=== PATIENT | female | born 1965 | race Caucasian/White ===

== ENCOUNTER 2017-02-17 10:41 | Emergency (ER) | payer OTHER ==
[2017-02-17 10:42] VITALS: BMI 25.3
[2017-02-17 11:04] VITALS: TEMP 98.4; O2SAT 98
[2017-02-17] MEDS ORDERED: DiphenhydrAMINE 50 mg/ml Inj IM STA (11:17)
[2017-02-17] MEDS ORDERED: DiphenhydrAMINE 50 mg/ml Inj ONE (11:34)
[2017-02-17 12:51] VITALS: BP 118/65; PULSE 71; RESP 18
--- NOTE | 2017-02-17 12:52 | C.PDOC ---
History Of Present Illness 51 year old female presents to the ED for evaluation of an itchy rash which developed yesterday. Patient states the rash first began around her left wrist, then progressed to her left cheek, left eyebrow region and chin. Patient denies fever, chills, shortness of breath, difficulty swallowing, throat-swelling sensation, voice change, or contact with new foods, detergents, or soaps. Time Seen by Provider: 02/17/17 11:17 Chief Complaint (Nursing): Allergic Reaction History Per: Patient History/Exam Limitations: no limitations Onset/Duration Of Symptoms: Hrs Current Symptoms Are (Timing): Still Present Possible Cause: Unknown Associated Symptoms: Skin Rash, Itching. denies: Dyspnea, Trouble Swallowing Additional History Per: Patient Past Medical History Reviewed: Historical Data, Nursing Documentation, Vital Signs Vital Signs: Last Vital Signs Temp 98.4 F 02/17/17 11:00 Pulse 71 02/17/17 12:51 Resp 18 02/17/17 12:51 BP 118/65 02/17/17 12:51 Pulse Ox 98 02/17/17 23:45 - Medical History PMH: Gastritis, GERD, Kidney Stones, Chronic Kidney Disease Surgical History: Cholecystectomy (3YRS AGO), Endoscopy - [facility] Procedures CLOSED ENDOSCOPIC BIOPSY OF LARGE INTESTINE (10/25/14) ENDOSCOPIC REMOVAL OF STONE(S) FROM BILIARY TRACT (11/05/14) ENDOSCOPIC SPHINCTEROTOMY AND PAPILLOTOMY (11/05/14) ESOPHAGOGASTRODUODENOSCOPY [EGD] W/CLOSED BIOPSY (06/04/14) INJECT/INFUSE NEC (08/14/14) Family History: States: Unknown Family Hx - Social History Hx Tobacco Use: No Hx Alcohol Use: No Hx Substance Use: No - Immunization History Hx Tetanus Toxoid Vaccination: No Hx Influenza Vaccination: No Hx Pneumococcal Vaccination: No Review Of Systems Constitutional: Negative for: Fever, Chills ENT: Negative for: Mouth Swelling, Throat Swelling Respiratory: Negative for: Shortness of Breath Skin: Positive for: Rash (left wrist, left cheek, left eyebrow, and chin ) Physical Exam - Physical Exam Appears: Non-toxic, No Acute Distress Skin: Warm, Dry, Rash (urticaria to volar aspect of left wrist, left cheek, above left eyebrow and chin ) Head: Atraumatic, Normacephalic Eye(s): bilateral: Normal Inspection Nose: Normal, No Discharge Oral Mucosa: Moist Tongue: Normal Appearing, No Swelling Lips: Normal Appearing, No Swelling Throat: Normal, No Erythema, No Exudate, No Drooling Neck: Normal ROM, Supple Chest: Symmetrical, No Deformity, No Tenderness Cardiovascular: Rhythm Regular, No Murmur Respiratory: Normal Breath Sounds, No Rales, No Rhonchi, No Wheezing Extremity: Normal ROM, No Tenderness, Capillary Refill (less than 2 seconds ), No Swelling Pulses: Left Radial: Normal Neurological/Psych: Normal Speech, Normal Cognition Gait: Steady ED Course And Treatment O2 Sat by Pulse Oximetry: 98 (on RA) Pulse Ox Interpretation: Normal Progress Note: Patient received Atarax PO, Pepcid PO, Benadryl IM and Prednisone PO. On reassessment, patient is resting comfortably, showing no signs of respiratory distress and reports an improvement in her symptoms. Patient is stable for discharge. Patient is advised to follow up with her PMD within 1-2 days for further evaluation and/or return to the ED if symptoms worsen. Reassessment Condition: Improved Disposition - Disposition Disposition: HOME/ ROUTINE Disposition Time: 12:46 Condition: STABLE Additional Instructions: Follow up with PMD within 1-2 days. Return to ED if feel worse. 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 - Scribe Statement The provider has reviewed the documentation as recorded by the Scribe (Brenda Ibarra) All medical record entries made by the Scribe were at my direction and personally dictated by me. I have reviewed the chart and agree that the record accurately reflects my personal performance of the history, physical exam, medical decision making, and the department course for this patient. I have also personally directed, reviewed, and agree with the discharge instructions and disposition.
== END 2017-02-17 12:58 | disposition home or self-care (01) ==
LOC: C.ER 10:41
DX: L50.9 Urticaria, unspecified (principal)

== ENCOUNTER 2017-07-01 10:26 | Emergency (ER) | payer OTHER ==
[2017-07-01 10:26] VITALS: BMI 26.0
[2017-07-01 10:47] VITALS: RESP 20
--- NOTE | 2017-07-01 11:40 | C.PDOC ---
History Of Present Illness 51 year old female with PMH neck problems presents to ED with complaints of pain to right arm and neck for 3 days. Patient reports pain is in upper arm, points to bicep area and radiates into her neck and shoulder. Pain is dull aching and worsened with strenous use. She denies any numbness, weakness, injury , headache, or fever. Time Seen by Provider: 07/01/17 11:06 Chief Complaint (Nursing): Upper Extremity Problem/Injury History Per: Patient History/Exam Limitations: no limitations Onset/Duration Of Symptoms: Days Current Symptoms Are (Timing): Still Present Recent travel outside of the [place]: No Past Medical History Reviewed: Historical Data, Nursing Documentation, Vital Signs Vital Signs: Last Vital Signs Temp 97.9 F 07/01/17 11:52 Pulse 90 07/01/17 11:52 Resp 20 07/01/17 11:52 BP 127/82 07/01/17 11:52 Pulse Ox 100 07/01/17 12:57 - Medical History PMH: Gastritis, GERD, Kidney Stones, Chronic Kidney Disease Surgical History: Cholecystectomy, Endoscopy - [facility] Procedures CLOSED ENDOSCOPIC BIOPSY OF LARGE INTESTINE (10/25/14) ENDOSCOPIC REMOVAL OF STONE(S) FROM BILIARY TRACT (11/05/14) ENDOSCOPIC SPHINCTEROTOMY AND PAPILLOTOMY (11/05/14) ESOPHAGOGASTRODUODENOSCOPY [EGD] W/CLOSED BIOPSY (06/04/14) INJECT/INFUSE NEC (08/14/14) Family History: States: Unknown Family Hx - Social History Hx Tobacco Use: No Hx Alcohol Use: No Hx Substance Use: No - Immunization History Hx Tetanus Toxoid Vaccination: No Hx Influenza Vaccination: No Hx Pneumococcal Vaccination: No Review Of Systems Constitutional: Negative for: Fever Musculoskeletal: Positive for: Neck Pain, Arm Pain Neurological: Negative for: Weakness, Numbness, Headache Physical Exam - Physical Exam Appears: Non-toxic, No Acute Distress Skin: Normal Color, Warm, Dry Head: Atraumatic, Normacephalic Eye(s): bilateral: Normal Inspection, EOMI Nose: Normal Oral Mucosa: Moist Neck: Normal ROM, Paracervical Tenderness, Other (Tenderness on palpation of right trapezius muscle) Chest: Symmetrical Cardiovascular: Rhythm Regular, No Murmur Respiratory: Normal Breath Sounds, No Wheezing Back: Normal Inspection, No Vertebral Tenderness, No Paraspinal Tenderness Extremity: Normal ROM (x4), No Tenderness, No Deformity, No Swelling, No Other ( Erythema or ecchymosis) Neurological/Psych: Oriented x3, Normal Speech, Normal Motor, Normal Sensation Gait: Steady ED Course And Treatment O2 Sat by Pulse Oximetry: 100 (Room air) Pulse Ox Interpretation: Normal Medical Decision Making Medical Decision Making: patient with history of chronic neck pain and pain radiating down into right arm. Exam shows muscular tenderness, normal ROM of neck and extremities. Normal sensation and pulses. Pain is likely related to radiculopathy/muscular. Patient has no trauma or clinical indication for xrays or imaging. Recommend analgesics and muscle relaxants. Instruct to follow up with PCP or clinic. Disposition Counseled Patient/Family Regarding: Need For Followup, Rx Given - Disposition Referrals: [facility] [Outside] Disposition: HOME/ ROUTINE Disposition Time: 11:38 Condition: GOOD Additional Instructions: Your prescription was sent to [facility] Take Motrin for pain as needed every 6-8 hours Take Flexeril as needed for muscle pain every 8 hours, can cause drowsiness Apply heat to area 2-3 times per day Follow up with your doctor Parada prescripcin fue enviada a [facility] Motrin para el dolor segn sea necesario cada 6-8 horas [facility] Flexeril segn sea necesario para el dolor muscular cada 8 horas, puede causar somnolencia Aplicar calor al zena 2-3 veces por da [place]ela un seguimiento con parada mdico Prescriptions: Cyclobenzaprine [Cyclobenzaprine HCl] 10 mg PO TID #21 tab Ibuprofen [Motrin] 600 mg PO Q8 #30 tab Instructions: Cervical Strain (GEN), Muscle Strain (ED) Forms: Somewhere (French) Print Language: SYRIAN - POA Present On Arrival: None - Clinical Impression Clinical Impression: Cervical radiculopathy, Muscle strain - 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 - Scribe Statement The provider has reviewed the documentation as recorded by the Scribe Florentin Zamorano All medical record entries made by the Scribe were at my direction and personally dictated by me. I have reviewed the chart and agree that the record accurately reflects my personal performance of the history, physical exam, medical decision making, and the department course for this patient. I have also personally directed, reviewed, and agree with the discharge instructions and disposition.
[2017-07-01 11:53] VITALS: BP 127/82; PULSE 90; TEMP 97.9
[2017-07-01 12:46] VITALS: O2SAT 100
== END 2017-07-01 12:05 | disposition home or self-care (01) ==
LOC: C.ER 10:26
DX: M54.12 Radiculopathy, cervical region (principal); S16.1XXA Strain of muscle, fascia and tendon at neck level, initial encounter; X58.XXXA Exposure to other specified factors, initial encounter

== ENCOUNTER 2018-08-02 07:20 | Day surgery (SDC) | payer OTHER ==
[2018-08-02 08:15] VITALS: BMI 28.9
--- NOTE | 2018-08-02 08:53 | CP.SDSHP ---
Same Day Surgery H & P - History Proposed Procedure: EGD Pre-Op Diagnosis: chronic heartburn. epigastric pain refractory to PPI - Previous Medical/Surgical History Misc: Other (gerd) Previous Surgical History: Lap Cholecystectomy - Allergies Allergies: Allergies No Known Allergies Allergy (Verified 08/02/18 08:15) - Physical Exam Vital Signs: Vital Signs 08/02/18 08:31 Temperature 98.2 F Pulse Rate 84 Respiratory 21 Rate Blood Pressure 132/77 O2 Sat by Pulse 98 Oximetry Mental Status: Alert & Oriented x3 Neuro: WNL Heart: WNL Lungs: WNL GI: WNL - Impression Impression: heartburn. epigastric pain refractory to Rx Pt. Evaluated Today:Candidate for Anesthesia & Procedure: Yes - Date & Time Date: 08/02/18 Time: 08:53 Short Stay Discharge - Short Stay Discharge Admitting Diagnosis/Reason for Visit: HEARTBURN / EPIGASTRIC PAIN / GERD Disposition: HOME/ ROUTINE
[2018-08-02] MEDS ORDERED: Pantoprazole 40 mg EC Tab PO ONE (09:00)
[2018-08-02] MEDS ORDERED: Lidocaine Hydrochloride 5 ML INJ ONE (09:11)
[2018-08-02] MEDS ORDERED: Propofol 10 mg/ml Inj (20 ML) ONE (09:11)
[2018-08-02 09:46] VITALS: TEMP 98.9
[2018-08-02 10:43] VITALS: BP 105/69; PULSE 71; RESP 14; O2SAT 98
== END 2018-08-02 10:40 | disposition home or self-care (01) ==
LOC: C.ENDO 07:20
PROVIDERS: ATTEND Internal Medicine Gastroenterology
DX: K21.0 Gastro-esophageal reflux disease with esophagitis (principal); K29.70 Gastritis, unspecified, without bleeding
CPT/HCPCS: 43239; 88305; 88312; 88313; 88342; J2704

== ENCOUNTER 2018-09-01 12:06 | Outpatient (CLI) | payer OTHER | END 2018-09-01 12:07 | disposition home or self-care (01) | LOC: C.CTH 12:06 | DX: R93.89 Abnormal findings on diagnostic imaging of other specified body structures (principal) ==

== ENCOUNTER 2018-09-19 12:16 | Outpatient (CLI) | payer OTHER | END 2018-09-19 12:17 | disposition home or self-care (01) | LOC: C.USIC 12:16 | DX: E04.2 Nontoxic multinodular goiter (principal) ==

== ENCOUNTER 2018-10-10 08:59 | Day surgery (SDC) | payer OTHER ==
--- NOTE | 2018-10-10 09:55 | CP.SDSHP ---
Same Day Surgery H & P - History Proposed Procedure: US guided FNA of left lower pole thyroid nodule Pre-Op Diagnosis: THyroid nodule - Allergies Allergies: Allergies No Known Allergies Allergy (Verified 08/02/18 08:15) - Impression Impression: US of neck showed a mixed solid and cystic lower pole left thyroid nodule. There is significant vascularity of surrounding the nodule that prevents safe FNA. Some of the vessels have arterial waveform. No FNA performed. Recommned thyroid scan to assess the functionality of the nodule. Hot nodules are benign. Cold nodules will need to be worked up. Pt. Evaluated Today:Candidate for Anesthesia & Procedure: No Short Stay Discharge - Short Stay Discharge Admitting Diagnosis/Reason for Visit: ABNORMAL FINDINGS ON DX IMAGING OF OTH BODY STRUCT Disposition: HOME/ ROUTINE
--- NOTE | 2018-10-10 11:24 | US ---
Date of service: 10/10/2018 PROCEDURE: ULTRASOUND OF LEFT NECK PERFORMED FOR PURPOSES OF THYROID NODULE FNA HISTORY: LT THYROID NODULE COMPARISON: TECHNIQUE: FINDINGS: Complex mixed solid cystic nodule is present in the lower pole of the left thyroid gland measuring 2 centimeters. There is extensive vascularity surrounding the nodule precluding fine aspiration. Risk of bleeding from the FNA is felt to be too great. IMPRESSION: Mixed solid and cystic nodule lower pole left thyroid gland. Ultrasound-guided FNA could not be performed secondary to extensive vascularity surrounding the lesion. Thyroid scan is recommended as a follow-up study to assess if nodule is hot or cold.
[2018-10-10 12:08] VITALS: BMI 20.9
== END 2018-10-10 10:30 | disposition home or self-care (01) ==
LOC: C.SPRAD 08:59
PROVIDERS: ATTEND Radiology Vascular & Interventional Radiology
DX: E04.1 Nontoxic single thyroid nodule (principal)